=== PATIENT | female | born 1990 | race African-American/Black ===

== ENCOUNTER 2024-08-01 17:01 | Emergency (ER) | payer OTHER ==
[~2024-08-01] VITALS: Ht 162.6 cm; Wt 113.0 kg
[2024-08-01] MEDS ORDERED: CLON0.1T PO (20:08)
[2024-08-01] MEDS ORDERED: AUG875T PO (20:08)
--- NOTE | 2024-08-01 20:09 | ED.PDOC ---
SOB-HPI HPI Comments 34 year-old female complaining of cough shortness a breath and wheezing. States she gets-shortness of breath with minimal exertion. Says she was seen at [facility] two days ago. He was prescribed antibiotics and steroids. Says she took single dose of steroid and antibiotic and felt nauseous and had vomiting. She was stopped taking both medications for the last two days. Upon assessment the patient had very high blood pressure. Patient states she got very nervous after seeing the patient he was intubated. She states they did do x-rays two days ago when she was told no pneumonia. She was told she had cardiomegaly. Patient denies any headaches denies any blurred vision. States she can check her blood pressure at home. She was never been on any blood pressure medications other than when she was . Taking nifedipine and labetalol. Chief Complaint: Shortness of Breath Time Seen by MD: 17:44 Primary Care Provider: none Reviewed notes: Nurses Notes Information Source: Patient Mode of Arrival: Ambulatory Past Medical History PAST MEDICAL HISTORY: Denies Surgical History: Denies all surgeries [employer] History: No Pertinent [employer] WORK[employer] History Constitutional: denies: chills, diaphoresis, fatigue, fever, malaise, sweats, w eakness, others EENTM: denies: blurred vision, double vision, ear bleeding, ear discharge, ear drainage, ear pain, ear ringing, eye pain, eye redness, hearing loss, mouth pain, mouth swelling, nasal discharge, nose bleeding, nose congestion, nose pain, photophobia, tearing, throat pain, throat swelling, voice changes, others Respiratory: reports: cough, SOB at rest, wheezing; denies: hemoptysis, orthop lauren, shortness of breath, SOB with excertion, stridor, others Cardiovascular: denies: chest pain, dizzy spells, diaphoresis, Dyspnea on exertion, edema, irregular heart beat, left arm pain, lightheadedness, palpitations, PND, syncope, others Gastrointestinal: denies: abdomen distended, abdominal pain, blood streaked bowels, constipated, diarrhea, dysphagia, difficulty swallowing, hematemesis, melena, nausea, poor appetite, poor fluid intake, rectal bleeding, rectal pain, vomiting, others Genitourinary: denies: abnormal vagina bleeding, burning, dyspareunia, dysuria, flank pain, frequency, hematuria, incontinence, pain, , vagina discharge, urgency, others Neurological: denies: dizziness, fainting, headache, left sided numbness, left sided weakness, numbness, paresthesia, pre-existing deficit, right sided numbness, right sided weakness, seizure, speech problems, tingling, tremors, weakness, others Musculoskeletal: denies: back pain, gout, joint pain, joint swelling, muscle pain, muscle stiffness, neck pain, others Integumetry: denies: bruises, change in color, change in hair/nails, dryness, laceration, lesions, lumps, rash, wounds, others Allergic/Immunocompromised: denies: Difficulty Healing, Frequent Infections, Hives, Itching, others Hematologic/Lymphatic: denies: anemia, blood clots, easy bleeding, easy bruising, swollen glands, others Physical Exam General Appearance: No Apparent Distress, Normal HEENT: Normal ENT Inspection, Pharynx Normal, TMs Normal Neck: Full Range of Motion, Non-Tender, Normal, Normal Inspection Respiratory: Chest Non-Tender, Lungs Clear, No Accessory Muscle Use, No Respiratory Distress, Normal Breath Sounds Cardiovascular: No Edema, No JVD, No Murmur, No Gallop, Normal Peripheral Pulses, Regular Rate/Rhythm Breast Exam: Deferred Gastrointestinal: No Organomegaly, Non Tender, No Pulsatile Mass, Normal Bowel Sounds, Soft Genitalia: Deferred Pelvic: Deferred Rectal: Deferred Extremities: No calf tenderness, Normal capillary refill, Normal inspection, Normal range of motion, Non-tender, No pedal edema Musculoskeletal : Apperance: Normal Neurologic: Alert, 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 Was a procedure done?: No Differential Dx Differential Diagnosis: Hypertension, Myocardial infarction, Panic Attack, Pneumonia X-Ray, Labs, Meds, VS Vital Signs Date Time Temp Pulse Resp B/P (MAP) Pulse Ox O2 Delivery O2 Flow Rate FiO2 08/01/24 17:16 98.9 108 20 173/128 (143) 100 X-Ray, Labs, Meds, VS Comment Imaging: X-rays and CT scans were reviewed and interpreted by this provider, imaging shows no fractures and no pathological disease. Pending radiology review. Laboratory: Labs reviewed and interpreted by this provider. No significant abnormalities noted. Patient has prior medical visits reviewed. Med reconciliation performed Vital signs reviewed Time of 1ST Reevaluation: 20:09 Reevaluation 1ST: Improved Patient Education/Counseling: Diagnosis, Treatment, Need For Follow Up (Patient advised to follow-up in the emergency room in the next 24 to 48 hours if symptoms do not improve. Advised follow-up with PCP in the next 3 to 5 days. Patient verbalized understanding. ) Family Education/Counseling: Diagnosis Departure 1 Departure Time of Disposition: 20:07 Impression: Primary Impression: Bronchitis Additional Impression: Hypertensive urgency Disposition: 01 HOME / SELF CARE / HOMELESS Condition: Fair e-Prescriptions Clonidine Hydrochloride (Clonidine Hcl) 0.1 Mg Tab 0.1 MG PO BID for 20 Days, #40 TAB Prov: RORY GONZALEZ 08/01/24 Amoxicillin & Pot Clavulanate (AUGMENTIN TABLET) 875 Mg Tb 875 MG PO BID for 7 Days, #14 TAB Prov: RORY GONZALEZ 08/01/24 Comments Discontinue azithromycin Critical Care Note Critical Care Time?: No Stability Stability form required: No Heart Score Heart Score: Heart Score Response (Comments) Value History N/A 0 EKG N/A 0 Age N/A 0 Risk Factors N/A 0 Troponin N/A 0 Total 0 RORY GONZALEZ Aug 01, 2024 20:09
[2024-08-01 20:27] VITALS: PULSE 109; RESP 18; TEMP 97.8; O2SAT 100
[2024-08-01] MEDS: cloNIDine HCL 0.1 MG TAB PO ONE (20:43)
[2024-08-01 21:25] VITALS: BP 151/104; PULSE 109; RESP 18; O2SAT 100
== END 2024-08-01 21:30 | disposition home or self-care (01) ==
LOC: ER 17:01
DX: I16.0 Hypertensive urgency (principal); J40 Bronchitis, not specified as acute or chronic